=== PATIENT | male | born 1940 | race Caucasian/White ===

== ENCOUNTER 2023-06-01 07:33 | Inpatient (IN) ==
[2023-06-01] MEDS ORDERED: SODIUM CHLORIDE 0.9% 500 ML IV ONE (08:18)
[2023-06-01] MEDS ORDERED: fentaNYL citrate PF 100 MCG/2 ML VIAL IV STA ×2 (08:18→11:15)
[2023-06-01] MEDS ORDERED: ONDANSETRON INJ 2 MG/ML 2 ML VIAL IV STA ×2 (08:18→10:58)
--- NOTE | 2023-06-01 08:21 | Emergency Department Note ---
Impression & Plan Calculus of proximal right ureter, MANUEL (acute kidney injury), Renal mass, Hydronephrosis of right kidney ED Provider Note Name: CONG HURTADO Age: 83 Sex: Male Arrives Via: Ambulance Informant: Patient, family ED Provider: Viraj Agustin MD Chief Complaint: Right flank pain/abdominal pain Impression: As per impressions above Medical Decision Makin-year-old male with rapid onset of right lower quadrant abdominal pain similar to his flank over the last 24 hours. He is severely uncomfortable on arrival. He has significant tenderness palpation throughout the right abdomen. A CT of the and pelvis does reveal a large proximal right ureteral stone with moderate hydro-. There is no evidence of infection at this time. He does have some MANUEL of uncertain degree given do not know baseline labs. He was hydrated. He required multiple rounds of IV narcotics is quite uncomfortable. I did discuss with urology who agreed with approach for pain control fluids and hospitalist was consulted for further management. Triage/Nursing Notes reviewed by Me External Chart Review by me: No outside records available Differential:Renal colic, UTI, appendicitis, diverticulitis, mesenteric ischemia, aortic pathology, infections, inflammatory bowel disease, PUD, biliary pathology, as well as other pathologies. Vital Signs: reviewed and remarkable for hypertension Interventions: Fentanyl IV x2, Dilaudid IV x2, normal saline bolus IV Labs:ED labs Reviewed by me and remarkable for elevated creatinine Imaging:CT then pelvis with IV contrast reveals a proximal large right ureteral stone with moderate hydro no obstruction of bowel or free air appreciated. Cardiac/Tele Monitoring: Cardiac Monitoring: An Order was placed for continuous cardiac monitoring. The monitor shows a rate of 70 with a normal sinus rhythm. Consults:Dr Rodriguez [facility]rology. Dr Arehciga [place] Hospitalist Plan: Disposition:Hospitalization. Condition: Good History of Present Illness: 83-year-old male arrives for evaluation of abdominal pain. Patient notes 24 hours of rapidly worsening right lower quadrant abdominal pain. Radiates to his back somewhat. Associated with nausea. No falls, trauma, injuries. Patient states it hurts to take a deep breath or even move. Denies any previous pain like this. Has never had any surgeries on his abdomen. He takes Tums regularly for reflux.No medications taken this morning for pain. Brought in by family due to pain. Past Medical History:CAD with CABG Home Medications: Aspirin atorvastatin, baclofen, carvedilol, docusate, levothyroxine, Percocet, tamsulosin, Percocet Allergies:Denies drug allergies Vitals:Blood Pressure: 168/99, Pulse 70, RR 20, T 36.9C, O2 92% on RA Physical Exam: GENERAL: Patient is uncomfortable appearing and in moderate distress. RESPIRATORY: No dyspnea. Clear to auscultation and equal bilaterally. CARDIOVASCULAR: Regular rate and rhythm.Systolic murmur noted GASTROINTESTINAL: Abdomen soft, significant right lower quadrant tenderness palpation and some guarding. EXTREMITIES: Normal motion all extremities, no cyanosis, no edema. NEUROLOGIC: Alert and oriented. No focal neurologic deficits appreciated SKIN: No rash, no jaundice, no diaphoresis. PSYCH: Appropriate GCS: 15 ED Course: Times/Reassessments: Very difficult control of pain while here. Eventually improved somewhat and agreeable to hospitalization Viraj Agustin MD Past Med/Surg History Medical History History of diabetes mellitus History of prostate cancer s/p external radiation Hypothyroidism Coronary artery disease Surgical History History of arthroscopy of right shoulder History of coronary artery bypass graft x 3 Social History Smoking Status: Never smoker Tobacco Type: Cigarettes Hx Alcohol Use: No Hx Substance Use: No Preferred Language: Luxembourger Communication Ability: Effective Railroad Engineer Required: No Beliefs That Will Affect Care: None Current Living Situation: Family Feels Safe at Home: Yes Assistive Devices: Glasses Allergies Allergies Allergy/AdvReac Type Severity Reaction Status Date / Time No Known Allergies Allergy Unverified 06/01/23 10:34 Home Meds Home Medications Medication Instructions Recorded Confirmed aspirin 81 mg tablet,delayed 81 mg PO QAM 06/01/23 06/01/23 release atorvastatin 40 mg tablet 40 mg PO HS 06/01/23 06/01/23 baclofen 5 mg tablet 5 mg PO Q12H PRN muscle spasms 06/01/23 06/01/23 carvedilol 6.25 mg tablet 6.25 mg PO BID 06/01/23 06/01/23 docusate sodium 100 mg tablet 100 mg PO QAM 06/01/23 06/01/23 levothyroxine 25 mcg tablet 25 mcg PO QAM 06/01/23 06/01/23 oxycodone-acetaminophen 10 mg-325 1 tab PO .Q4-6H PRN Pain 06/01/23 06/01/23 mg tablet potassium chloride 10 mEq 10 meq PO QAM 06/01/23 06/01/23 tablet,extended release(part/cryst) tamsulosin 0.4 mg capsule 0.4 mg PO QAM 06/01/23 06/01/23 Results & Data (ED) Vital Signs Vital Signs - 24 hr 06/01/23 07:10 06/01/23 07:54 06/01/23 08:00 Temperature 36.9 C Temperature Source Oral Pulse Rate 64 60 Pulse Rate [Apical] 70 Pulse Rhythm Regular Pulse Rhythm [Apical] Regular Pulse Strength Normal Pulse Strength [Apical] Normal Respiratory Rate 20 20 Respiratory Effort / Characteristics Non-Labored Spontaneous Non-Labored Spontaneous Respiratory Depth Normal Normal Respiratory Pattern Regular Regular Blood Pressure 180/98 H Blood Pressure [Right Arm] 168/99 H Blood Pressure Mean 125 Blood Pressure Mean [Right Arm] 122 Blood Pressure Position Sitting Blood Pressure Position [Right Arm] Sitting Pulse Oximetry 86 L 92 Oxygen Delivery Method Room Air Room Air Sepsis Recent Fever Within 48 Hours No Sepsis New/Unexplained Change in Mental Status No Sepsis Action Taken by Nursing No Action Required Laboratory Data 06/02/23 07:15 06/02/23 07:15 Lab Results 06/01/23 06/01/23 Range/Units 07:52 10:29 WBC 7.75 (4.8-10.8) K/ul RBC 4.12 L (4.70-6.10) M/uL Hgb 12.6 L (14.0-18.0) g/dl Hct 38.0 L (42.0-52.0) % MCV 92.2 (80.0-100.0) fL MCH 30.6 (25.0-34.0) pg MCHC 33.2 (32.0-36.0) g/dL RDW Std Deviation 45.4 (36.4-46.3) fL RDW Coeff of Danielle 13.5 (11.5-14.5) % Plt Count 129 L (130-400) K/uL MPV 9.1 L (9.4-12.4) fL Immature Gran % (Auto) 0.4 % Neut % (Auto) 79.4 % Lymph % (Auto) 11.5 % [place] % (Auto) 7.4 % Eos % (Auto) 1.2 % Baso % (Auto) 0.1 % Neut # (Auto) 6.16 (1.40-6.50) K/uL Lymph # (Auto) 0.89 L (1.20-3.40) K/uL [place] # (Auto) 0.57 (0.11-0.59) K/uL Eos # (Auto) 0.09 (0.00-0.50) K/uL Baso # (Auto) 0.01 (0.00-0.20) K/uL Immature Gran # (Auto) 0.03 (0.01-0.20) K/uL Sodium 141 (136-145) mmol/L Potassium 3.9 (3.5-5.1) mmol/L Chloride 108 H (98-107) mmol/L Carbon Dioxide 24 (21-32) mmol/L Anion Gap 9 (3-11) BUN 27 H (6-23) mg/dl Creatinine 1.93 H (0.6-1.4) mg/dl Est Cr Clr Drug Dosing 28.1 ml/min Est GFR ( Amer) 36.8 ml/min Est GFR (Non-Af Amer) 31.7 ml/min BUN/Creatinine Ratio 14.0 (10-20) Glucose 138 H (70-99(Fasting)) mg/dl Calcium 9.4 (8.6-10.3) mg/dl Magnesium 1.8 (1.7-2.4) mg/dl Total Bilirubin 0.7 (0.2-1.0) mg/dl Direct Bilirubin 0.2 (0-0.2) mg/dl AST 20 (13-39) U/L ALT 21 (7-52) U/L Alkaline Phosphatase 36 (34-104) U/L Troponin I High Sens 14.2 (0-20) pg/ml Total Protein 6.9 (6.0-8.3) gm/dl Albumin 4.3 (3.4-5.0) gm/dl Lipase 20 (11-82) U/L Procalcitonin 0.05 (0-0.5) ng/ml Urine Color Yellow Urine Appearance Clear (Clear) Urine pH 5.0 (4.5-7.5) Ur Specific Alpha 1.021 (1.000-1.030) Urine Protein Negative (Negative) Urine Glucose (UA) Negative (Negative) Urine Ketones Negative (Negative) Urine Blood 1+ H (Negative) Urine Nitrite Negative (Negative) Urine Bilirubin Negative (Negative) Urine Urobilinogen Negative (Negative) Ur Leukocyte Esterase Negative (Negative) Urine WBC (Auto) 1-5 (0-5) /hpf Urine RBC (Auto) 10-30 H (0-4) /hpf U Hyaline Cast (Auto) 1-5 (0-5) /lpf U Epithel Cells (Auto) 0-5 (0-5) /lpf Urine Bacteria (Auto) Negative (Negative) Administered Medications Acetaminophen (Acetaminophen 500 Mg Tab) 1,000 mg PO TID [facility] Stop: 07/01/23 13:59 Last Admin: 06/02/23 15:19 Dose: 1,000 mg Documented By: Admin: 06/02/23 10:11 Dose: Not Given Documented By: Admin: 06/01/23 20:34 Dose: 1,000 mg Documented By: Admin: 06/01/23 13:28 Dose: 1,000 mg Documented By: AV Aspirin (Aspirin 81 Mg Ectab) [address] [facility] Stop: 07/01/23 12:54 Last Admin: 06/02/23 15:20 Dose: 81 mg Documented By: Admin: 06/01/23 13:28 Dose: 81 mg Documented By: KENAN Atorvastatin Calcium (Atorvastatin 40 Mg Tab) 40 mg PO HS ADILENE Stop: 07/01/23 20:59 Last Admin: 06/01/23 20:36 Dose: 40 mg Documented By: SG Carvedilol (Carvedilol 6.25 Mg Tab) 6.25 mg PO BID@1300,2100 [facility] Stop: 07/01/23 20:59 Last Admin: 06/02/23 15:20 Dose: 6.25 mg Documented By: Admin: 06/01/23 20:35 Dose: 6.25 mg Documented By: SG Docusate Sodium (Docusate Sodium 100 Mg Cap) [address] [facility] Stop: 07/02/23 08:59 Last Admin: 06/02/23 10:11 Dose: Not Given Documented By: KENAN Fentanyl Citrate (Fentanyl Citrate Pf 100 Mcg/2 Ml Vial) 25 mcg IV Q5M PRN PRN Reason: PACU Use Only-Pain Stop: 06/02/23 20:22 Last Admin: 06/02/23 14:20 Dose: 25 mcg Documented By: Admin: 06/02/23 14:15 Dose: 25 mcg Documented By: Admin: 06/02/23 14:10 Dose: 25 mcg Documented By: Admin: 06/02/23 14:04 Dose: 25 mcg Documented By: AD Heparin Sodium (Porcine) (Heparin Sod 5,000 Unit/0.5 Ml Vial) 5,000 units SQ Q12 [facility] Stop: 07/01/23 20:59 Last Admin: 06/02/23 10:12 Dose: Not Given Documented By: Admin: 06/01/23 20:36 Dose: 5,000 units Documented By: MISSAEL Hydromorphone HCl (Hydromorphone Inj 0.5 Mg/0.5 Ml Syr) 0.5 mg IV Q3H PRN PRN Reason: Pain (6,7,8,9,10) Stop: 06/15/23 13:36 Last Admin: 06/02/23 15:19 Dose: 0.5 mg Documented By: Admin: 06/02/23 07:30 Dose: 0.5 mg Documented By: Admin: 06/02/23 00:30 Dose: 0.5 mg Documented By: Admin: 06/01/23 16:12 Dose: 0.5 mg Documented By: KENAN Levothyroxine Sodium (Levothyroxine Sodium 25 Mcg Tablet) 25 mcg PO DAILYBB [facility] Stop: 07/02/23 06:29 Last Admin: 06/02/23 06:05 Dose: 25 mcg Documented By: MISSAEL Tamsulosin HCl (Tamsulosin Hcl 0.4 Mg Cap) 0.4 mg PO QAM [facility] Stop: 07/01/23 12:54 Last Admin: 06/02/23 15:20 Dose: 0.4 mg Documented By: Admin: 06/01/23 13:28 Dose: 0.4 mg Documented By: KENAN Discontinued Medications Carvedilol (Carvedilol 6.25 Mg Tab) 6.25 mg PO BIDM [facility] Stop: 07/01/23 12:54 Last Admin: 06/01/23 18:19 Dose: Not Given Documented By: Admin: 06/01/23 13:29 Dose: 6.25 mg Documented By: KENAN Ciprofloxacin (Ciprofloxacin 400mg / 200ml D5w) Confirm Administered Dose 400 mg IV .STK-MED ONE Stop: 06/02/23 13:25 Last Admin: 06/02/23 15:07 Dose: Not Given Documented By: KENAN Fentanyl Citrate (Fentanyl Citrate Pf 100 Mcg/2 Ml Vial) 50 mcg IV NOW STA Stop: 06/01/23 08:19 Last Admin: 06/01/23 08:39 Dose: 50 mcg Documented By: HARSHA Fentanyl Citrate (Fentanyl Citrate Pf 100 Mcg/2 Ml Vial) 100 mcg IV NOW STA Stop: 06/01/23 11:16 Last Admin: 06/01/23 11:23 Dose: 100 mcg Documented By: HARSHA Hydromorphone HCl (Hydromorphone Inj 0.5 Mg/0.5 Ml Syr) 0.5 mg IV NOW STA Stop: 06/01/23 09:57 Last Admin: 06/01/23 10:13 Dose: 0.5 mg Documented By: HARSHA Hydromorphone HCl (Hydromorphone Inj 1 Mg/Ml Syringe) 1 mg IV NOW STA Stop: 06/01/23 10:59 Last Admin: 06/01/23 11:04 Dose: 1 mg Documented By: HARSHA Sodium Chloride (Nss) 500 mls @ 999 mls/hr IV .Q31M ONE Stop: 06/01/23 08:48 Last Infusion: 06/01/23 09:19 Dose: Infused Documented By: Admin: 06/01/23 08:40 Dose: 999 mls/hr Documented By: HARSHA Sodium Chloride (Nss) 1,000 mls @ 999 mls/hr IV .Q1H1M ONE Stop: 06/01/23 10:57 Last Infusion: 06/01/23 13:01 Dose: Infused Documented By: Admin: 06/01/23 10:13 Dose: 999 mls/hr Documented By: HARSHA Parenteral Electrolytes (Plasma-Lyte A Ph 7.4) 1,000 mls @ 150 mls/hr IV .Q6H40M ADILENE Stop: 06/02/23 07:44 Last Infusion: 06/02/23 10:59 Dose: Infused Documented By: Admin: 06/02/23 03:40 Dose: 150 mls/hr Documented By: Infusion: 06/02/23 03:40 Dose: Infused Documented By: Admin: 06/01/23 21:06 Dose: 150 mls/hr Documented By: Infusion: 06/01/23 19:48 Dose: Infused Documented By: Admin: 06/01/23 13:07 Dose: 150 mls/hr Documented By: AV Morphine Sulfate (Morphine Sulfate 4 Mg/Ml 1 Ml Carp\Vial) 2 mg IV Q3H PRN PRN Reason: Pain (6,7,8,9,10) Stop: 06/15/23 12:54 Last Admin: 06/01/23 13:08 Dose: 2 mg Documented By: AV Ondansetron HCl (Ondansetron Inj 2 Mg/Ml 2 Ml Vial) 4 mg IV NOW STA Stop: 06/01/23 08:19 Last Admin: 06/01/23 08:39 Dose: 4 mg Documented By: HARSHA Ondansetron HCl (Ondansetron Inj 2 Mg/Ml 2 Ml Vial) 4 mg IV NOW STA Stop: 06/01/23 10:59 Last Admin: 06/01/23 11:04 Dose: 4 mg Documented By: HARSHA Imaging Data Radiologist's Impression: Chest X-Ray 06/01/23 08:18 SINGLE VIEW CHEST CLINICAL HISTORY: Hypoxia. FINDINGS: An AP, portable, upright chest radiograph is obtained. No prior studies are available for comparison at the time of dictation. The examination is degraded by portable technique and apical lordotic positioning. The patient is status post midline sternotomy. The heart is enlarged noting atherosclerotic calcification of the thoracic aorta. The pulmonary vasculature is congested. The lungs and pleural spaces are otherwise clear. No pneumothorax is seen. The skeletal structures are osteopenic. The bony thorax is grossly intact. Surgical anchors are noted in the right humeral head. IMPRESSION: Cardiomegaly with no active disease in the chest. ACT 112: Negative or not required by law. Electronically signed by: Maulik Garcia M.D. 06/01/2023 8:42 AM Discharge Plan Visit Data Chief Complaint: Abdominal Pain ED Provider: Viraj Agustin Discharge Problem: Calculus of proximal right ureter, MANUEL (acute kidney injury), Renal mass, Hydronephrosis of right kidney Patient Disposition: Admitted As Inpatient Discharge Instructions Interventions: ED Discharge Assessment Last Done: 06/01/23 12:36
[2023-06-01 08:34] LABS: Basophils # (auto) 0.01 K/uL (0.00-0.20); Basophils % (auto) 0.1 %; Eosinophils # (auto) 0.09 K/uL (0.00-0.50); Eosinophils % (auto) 1.2 %; Hemoglobin 12.6 g/dl (14.0-18.0); Immature Granulocytes # (auto) 0.03 K/uL (0.01-0.20); Immature Granulocytes % (auto) 0.4 %; Lymphocytes # (auto) 0.89 K/uL (1.20-3.40); Lymphocytes % (auto) 11.5 %; Mean Corpuscular Hemoglobin 30.6 pg (25.0-34.0); Mean Corpuscular Hgb Conc 33.2 g/dL (32.0-36.0); Mean Corpuscular Volume 92.2 fL (80.0-100.0); Mean Platelet Volume 9.1 fL (9.4-12.4); Monocytes # (auto) 0.57 K/uL (0.11-0.59); Monocytes % (auto) 7.4 %; Neutrophils # (auto) 6.16 K/uL (1.40-6.50); Neutrophils % (auto) 79.4 %; Platelet Count 129 K/uL (130-400); RDW Coefficient of Variation 13.5 % (11.5-14.5); RDW Standard Deviation 45.4 fL (36.4-46.3); Red Blood Count 4.12 M/uL (4.70-6.10); White Blood Count 7.75 K/ul (4.8-10.8)
--- NOTE | 2023-06-01 08:44 | XRay Report ---
SINGLE VIEW CHEST CLINICAL HISTORY: Hypoxia. FINDINGS: An AP, portable, upright chest radiograph is obtained. No prior studies are available for c omparison at the time of dictation. The examination is degraded by portable technique and apical lord otic positioning. The patient is status post midline sternotomy. The heart is enlarged noting atheros clerotic calcification of the thoracic aorta. The pulmonary vasculature is congested. The lungs and p leural spaces are otherwise clear. No pneumothorax is seen. The skeletal structures are osteopenic. T he bony thorax is grossly intact. Surgical anchors are noted in the right humeral head. IMPRESSION: Cardiomegaly with no active disease in the chest. ACT 112: Negative or not required by law. Electronically signed by: Maulik Garcia M.D. 06/01/2023 8:42 AM
[2023-06-01 09:02] LABS: Albumin Level 4.3 gm/dl (3.4-5.0); Bilirubin Direct 0.2 mg/dl (0-0.2); Bilirubin,Total 0.7 mg/dl (0.2-1.0); Calcium 9.4 mg/dl (8.6-10.3); Magnesium 1.8 mg/dl (1.7-2.4); Potassium 3.9 mmol/L (3.5-5.1)
[2023-06-01 09:08] LABS: Creatinine Clr Calc Pharmacy 28.1 ml/min; Est GFR (African American) 36.8 ml/min; Est GFR (Non-African American) 31.7 ml/min; Total Protein 6.9 gm/dl (6.0-8.3)
[2023-06-01 09:09] LABS: Troponin I High Sensitivity 14.2 pg/ml (0-20)
[2023-06-01] MEDS ORDERED: HYDROmorphone INJ 0.5 MG/0.5 ML SYR IV STA (09:56)
[2023-06-01] MEDS ORDERED: SODIUM CHLORIDE 0.9% 1,000 ML IV ONE (09:57)
--- NOTE | 2023-06-01 10:24 | CT Scan Report ---
CT SCAN OF THE ABDOMEN AND PELVIS WITHOUT IV CONTRAST CLINICAL HISTORY: Right lower quadrant abdominal pain. COMPARISON STUDY: No priors. TECHNIQUE: CT scan of the abdomen and pelvis is performed from the lung bases to the proximal femora. Images are reviewed in the axial, sagittal, and coronal planes. IV contrast was not administered for this examination. A dose lowering technique was utilized adhering to the principles of ALARA. CT DOSE: 1149.72 mGy.cm FINDINGS: Lung bases: The patient is status post midline sternotomy. The heart is mildly enlarged and without p ericardial effusion. There are coronary artery calcifications. The lung bases are clear. A small hiat al hernia is noted. Liver: The unenhanced liver is normal in size, contour, and attenuation. There is no intrahepatic daljit iary ductal dilatation. Gallbladder: Unremarkable. Spleen: Normal in size and attenuation. Pancreas: The unenhanced pancreas is grossly unremarkable. Adrenal glands: Unremarkable. Kidneys: The unenhanced kidneys demonstrate cortical atrophy. There is a 10 mm obstructing calculus i n the right proximal ureter at the level of L3 just below the ureteropelvic junction. This is best se en on image #140 and causes moderate right hydronephrosis. There is associated right-sided perinephri c inflammation and fluid. There are at least 8 additional tiny nonobstructing right renal calculi whi ch measure up to 3 mm. Additionally, there is a large complex lesion arising from the anterior interp olar right kidney seen on axial image #150. This measures 3.6 x 5.0 x 3.8 cm, and contains apparent c ystic foci, a rim of irregular hyperdense material, as well as scattered internal calcifications. A 2 .2 cm simple cyst arises from the right upper pole. Additional subcentimeter cortical hypodensities a re seen in both kidneys. There are at least 5 nonobstructing left renal calculi which measure up to 4 mm. There is no left ureteral stone or left-sided hydronephrosis. A retroverted left renal vein is i ncidentally noted. Abdominal vasculature: The abdominal aorta is normal in course and caliber noting moderate atheroscle rotic calcification. Bowel: There is mild colonic diverticulosis without CT evidence of acute diverticulitis. No bowel obs truction is seen. The appendix is well-visualized and normal. Peritoneum: There is trace perihepatic and perisplenic ascites. No intraperitoneal free air is identi fied. Lymphadenopathy: None. Pelvic viscera: The prostate gland is heterogeneous and contains metallic implants. The bladder is no rmal as visualized. There are bilateral fat-containing inguinal hernias.. Skeletal structures: The skeletal structures are osteopenic. Mild degenerative change is noted in the spine. A transitional left lumbosacral segment is incidentally noted. No lytic or blastic lesions ar e seen. IMPRESSION: 1. There is a 5.0 cm complex/heterogeneous lesion arising from the anterior interpolar right kidney a s detailed above. Although this could potentially represent a cyst with internal complexity/hemorrhag e, the appearance is much more suspicious for a renal neoplasm and a renal cell carcinoma is the diag nosis of exclusion. Follow-up with urology is recommended, as is a follow-up contrast-enhanced renal protocol CT or MRI in 2-3 weeks' time (following treatment of the obstructing right ureteral stone). 2. There is a 10 mm obstructing calculus in the right proximal ureter located just below the ureterop elvic junction. This causes moderate right hydronephrosis. 3. There is associated right-sided perinephric inflammation and fluid. 4. There are numerous additional small nonobstructing renal calculi seen bilaterally. 5. Trace upper abdominal ascites. 6. Additional findings as above. ACT 112: Positive. There are findings on this exam that require communication between the performing entity and the patient following Patient Test Result Information Act ([place] Act 112) guidelines. Electronically signed by: Maulik Garcia M.D. 06/01/2023 10:22 AM
[2023-06-01 10:44] LABS: Appearance Urine Clear (Clear); Bacteria Urine Automated Negative (Negative); Bilirubin Urine Negative (Negative); Blood Urine 1+ (Negative); Color Urine Yellow; Epithelial Cell Urine Auto 0-5 /lpf (0-5); Glucose Urine UA Negative (Negative); Ketones Urine Negative (Negative); Leukocyte Esterase Urine Negative (Negative); Nitrite Urine Negative (Negative); Protein Urine Negative (Negative); Specific Gravity Urine 1.021 (1.000-1.030); Urobilinogen Urine Negative (Negative)
[2023-06-01] MEDS ORDERED: HYDROmorphone INJ 1 MG/ML SYRINGE IV STA (10:58)
--- NOTE | 2023-06-01 11:45 | History & Physical Report ---
Date of Service June 01, 2023 Assessment & Plan (1) Ureterolithiasis: Plan: Obstructing causing suspected MANUEL (although no baseline available for comparison) Acetaminophen 1g TID Morphine 1-2mg IV q4h PRN Tamsulosin Plasma-Lyte @ 150ml/hr Consult urology (2) Renal mass: Plan: Consult urology (3) MANUEL (acute kidney injury): Plan: Obstructive from ureterolithiasis Unknown baseline but no known CKD per patient recollection Monitor for worsening with PM labs (4) Coronary artery disease: Plan: History of triple bypass in 2014 without [facility] per patient recollection ontinue ASA, carvedilol, atorvastatin (5) Systolic murmur: Plan: Throughout. Pt reports had it all his life. Denies any valvular pathology. (6) Hypothyroidism: Plan: TSH with AM labs Continue levothyroxine (7) Hypertensive urgency: Plan: Secondary to missing his carvedilol this morning and pain in the ER Improved to 157/84 at bedside after pain now controlled in the ER Plan VTE Prophyalxis - heparin 5000 units SQ BID Diet - heart healthy, NPO at midnight Disposition - admit to med/surg Admission and Anticipated Discharge Date Admission Date: June 01, 2023 History of Present Illness Chief Complaint: Right flank, right lower quadrant abdominal pain Primary Care Provider: ZAKI Orellana Gilberto Davis is an 83 year old male who presents to the ER with right lower abdominal and flank pain. He reports a longstanding history of back pain for the last 2 years getting progressively worse however never had a pain like this before which started last evening. He reports severity 10/10 pain started around 6pm last night. Constant but occasional sharp exacerbation. Better on moving around. Chills no fever. No urinary symptoms. No prior history of kidney stones. No prior heart attack or stroke. Triple coronary bypass 2014 - unknown what symptoms he was having at the time. Did not take his usual medications this morning. No vision changes or headache with his BP in the ER. Came in by EMS. Allergies Allergy/AdvReac Type Severity Reaction Status Date / Time No Known Allergies Allergy Unverified 06/01/23 10:34 Home Medications Medication Instructions Recorded Confirmed Type aspirin 81 mg tablet,delayed 81 mg PO QAM 06/01/23 06/01/23 History release atorvastatin 40 mg tablet 40 mg PO HS 06/01/23 06/01/23 History baclofen 5 mg tablet 5 mg PO Q12H PRN muscle spasms 06/01/23 06/01/23 History carvedilol 6.25 mg tablet 6.25 mg PO BID 06/01/23 06/01/23 History docusate sodium 100 mg tablet 100 mg PO QAM 06/01/23 06/01/23 History levothyroxine 25 mcg tablet 25 mcg PO QAM 06/01/23 06/01/23 History oxycodone-acetaminophen 10 mg-325 1 tab PO .Q4-6H PRN Pain 06/01/23 06/01/23 History mg tablet potassium chloride 10 mEq 10 meq PO QAM 06/01/23 06/01/23 History tablet,extended release(part/cryst) tamsulosin 0.4 mg capsule 0.4 mg PO QAM 06/01/23 06/01/23 History Past Med/Surg History Medical History (Updated 06/01/23 @ 12:32 by Ulysses Arechiga MD) History of diabetes mellitus History of prostate cancer s/p external radiation Hypothyroidism Coronary artery disease Surgical History (Updated 06/01/23 @ 11:46 by Ulysses Arechiga MD) History of arthroscopy of right shoulder History of coronary artery bypass graft x 3 Social History Smoking Status: Never smoker Tobacco Type: Cigarettes Hx Alcohol Use: No Hx Substance Use: No Preferred Language: Fijian Communication Ability: Effective [employer]els Sales Representative Required: No Beliefs That Will Affect Care: None Current Living Situation: Family Other Information That Helps Us Care for You: No Feels Safe at Home: Yes Safety Concerns: Feels Safe At This Time Assistive Devices: Glasses Review of Systems Review of Systems: All systems reviewed & are unremarkable except as noted in HPI & below Physical Exam Constitutional: WD/WN, vitals as above ENMT: Mouth: + dry oral mucous membranes Respiratory: normal respiratory effort, lungs clear to auscultation Cardiovascular: Rate/Rhythm: regular rate and regular rhythm Heart Sounds: + murmur (Systolic throughout) Extremities: normal capillary refill; no calf tenderness and no pedal edema Gastrointestinal (Abdomen): Inspection/Auscultation: abdomen normal to inspection; abdomen not distended Percussion/Palpation: + abdomen tender (RLQ), + guarding and abdomen soft; abdomen not rigid Musculoskeletal: no cyanosis or clubbing, extremities motor strength 5/5 Skin: no rashes, warm and dry Neurologic: moves all extremities and awake (drowsy); not confused Psychiatric: A+Ox3, euthymic affect Genitourinary: + CVA tenderness (right) Results & Data Results & Data Vital Signs (Past 12 Hours) Vital Signs Temp Pulse Pulse Resp BP BP Pulse Ox 06/01/23 11:30 83 21 06/01/23 11:16 62 22 94 06/01/23 11:16 245/108 H 06/01/23 11:09 75 21 94 06/01/23 11:09 260/114 H 06/01/23 11:00 65 20 94 06/01/23 11:00 227/118 H 06/01/23 10:45 229/113 H 06/01/23 10:45 67 15 96 06/01/23 10:30 70 22 94 06/01/23 10:01 64 22 95 06/01/23 10:01 204/141 H 06/01/23 10:00 69 22 92 06/01/23 10:00 74 20 204/141 H 92 06/01/23 09:45 65 19 97 06/01/23 09:45 229/112 H 06/01/23 09:30 65 15 96 06/01/23 09:30 183/84 H 06/01/23 09:17 188/85 H 06/01/23 09:17 61 17 96 06/01/23 09:06 61 16 97 06/01/23 09:01 81 24 94 06/01/23 09:01 220/127 H 06/01/23 09:00 65 19 92 06/01/23 09:00 72 20 188/85 H 92 06/01/23 08:45 66 13 92 06/01/23 08:45 188/115 H 06/01/23 08:34 66 19 95 06/01/23 08:34 198/97 H 06/01/23 08:30 62 18 95 06/01/23 08:30 200/111 H 06/01/23 08:16 68 19 97 06/01/23 08:16 194/113 H 06/01/23 08:00 64 13 95 06/01/23 08:00 168/99 H 06/01/23 08:00 70 20 168/99 H 92 06/01/23 07:54 60 11/18/23 07:48 68 20 97 06/01/23 07:10 36.9 C 64 20 180/98 H 86 L O2 Del Method 06/01/23 11:30 06/01/23 11:16 06/01/23 11:16 06/01/23 11:09 06/01/23 11:09 06/01/23 11:00 06/01/23 11:00 06/01/23 10:45 06/01/23 10:45 06/01/23 10:30 06/01/23 10:01 06/01/23 10:01 06/01/23 10:00 06/01/23 10:00 Room Air 06/01/23 09:45 06/01/23 09:45 06/01/23 09:30 06/01/23 09:30 06/01/23 09:17 06/01/23 09:17 06/01/23 09:06 06/01/23 09:01 06/01/23 09:01 06/01/23 09:00 06/01/23 09:00 Room Air 06/01/23 08:45 06/01/23 08:45 06/01/23 08:34 06/01/23 08:34 06/01/23 08:30 06/01/23 08:30 06/01/23 08:16 06/01/23 08:16 06/01/23 08:00 06/01/23 08:00 06/01/23 08:00 Room Air 06/01/23 07:54 06/01/23 07:48 06/01/23 07:10 Room Air Laboratory Results Abnormal lab results 06/01/23 06/01/23 Range/Units 07:52 10:29 RBC 4.12 L (4.70-6.10) M/uL Hgb 12.6 L (14.0-18.0) g/dl Hct 38.0 L (42.0-52.0) % Plt Count 129 L (130-400) K/uL MPV 9.1 L (9.4-12.4) fL Lymph # (Auto) 0.89 L (1.20-3.40) K/uL Chloride 108 H (98-107) mmol/L BUN 27 H (6-23) mg/dl Creatinine 1.93 H (0.6-1.4) mg/dl Glucose 138 H (70-99(Fasting)) mg/dl Urine Blood 1+ H (Negative) Urine RBC (Auto) 10-30 H (0-4) /hpf Diagnostic Findings SINGLE VIEW CHEST CLINICAL HISTORY: Hypoxia. FINDINGS: An AP, portable, upright chest radiograph is obtained. No prior studies are available for comparison at the time of dictation. The examination is degraded by portable technique and apical lordotic positioning. The patient is status post midline sternotomy. The heart is enlarged noting atherosclerotic calcification of the thoracic aorta. The pulmonary vasculature is congested. The lungs and pleural spaces are otherwise clear. No pneumothorax is seen. The skeletal structures are osteopenic. The bony thorax is grossly intact. Surgical anchors are noted in the right humeral head. IMPRESSION: Cardiomegaly with no active disease in the chest. CT SCAN OF THE ABDOMEN AND PELVIS WITHOUT IV CONTRAST CLINICAL HISTORY: Right lower quadrant abdominal pain. COMPARISON STUDY: No priors. TECHNIQUE: CT scan of the abdomen and pelvis is performed from the lung bases to the proximal femora. Images are reviewed in the axial, sagittal, and coronal planes. IV contrast was not administered for this examination. A dose lowering technique was utilized adhering to the principles of ALARA. CT DOSE: 1149.72 mGy.cm FINDINGS: Lung bases: The patient is status post midline sternotomy. The heart is mildly enlarged and without pericardial effusion. There are coronary artery calcifications. The lung bases are clear. A small hiatal hernia is noted. Liver: The unenhanced liver is normal in size, contour, and attenuation. There is no intrahepatic biliary ductal dilatation. Gallbladder: Unremarkable. Spleen: Normal in size and attenuation. Pancreas: The unenhanced pancreas is grossly unremarkable. Adrenal glands: Unremarkable. Kidneys: The unenhanced kidneys demonstrate cortical atrophy. There is a 10 mm obstructing calculus in the right proximal ureter at the level of L3 just below the ureteropelvic junction. This is best seen on image #140 and causes moderate right hydronephrosis. There is associated right-sided perinephric inflammation and fluid. There are at least 8 additional tiny nonobstructing right renal calculi which measure up to 3 mm. Additionally, there is a large complex lesion arising from the anterior interpolar right kidney seen on axial image #150. This measures 3.6 x 5.0 x 3.8 cm, and contains apparent cystic foci, a rim of irregular hyperdense material, as well as scattered internal calcifications. A 2.2 cm simple cyst arises from the right upper pole. Additional subcentimeter cortical hypodensities are seen in both kidneys. There are at least 5 nonobstructing left renal calculi which measure up to 4 mm. There is no left ureteral stone or left-sided hydronephrosis. A retroverted left renal vein is incidentally noted. Abdominal vasculature: The abdominal aorta is normal in course and caliber noting moderate atherosclerotic calcification. Bowel: There is mild colonic diverticulosis without CT evidence of acute diverticulitis. No bowel obstruction is seen. The appendix is well-visualized and normal. Peritoneum: There is trace perihepatic and perisplenic ascites. No intraperitoneal free air is identified. Lymphadenopathy: None. Pelvic viscera: The prostate gland is heterogeneous and contains metallic implants. The bladder is normal as visualized. There are bilateral fat- containing inguinal hernias.. Skeletal structures: The skeletal structures are osteopenic. Mild degenerative change is noted in the spine. A transitional left lumbosacral segment is incidentally noted. No lytic or blastic lesions are seen. IMPRESSION: 1. There is a 5.0 cm complex/heterogeneous lesion arising from the anterior interpolar right kidney as detailed above. Although this could potentially represent a cyst with internal complexity/hemorrhage, the appearance is much more suspicious for a renal neoplasm and a renal cell carcinoma is the diagnosis of exclusion. Follow-up with urology is recommended, as is a follow-up contrast- enhanced renal protocol CT or MRI in 2-3 weeks' time (following treatment of the obstructing right ureteral stone). 2. There is a 10 mm obstructing calculus in the right proximal ureter located just below the ureteropelvic junction. This causes moderate right hydronephrosis. 3. There is associated right-sided perinephric inflammation and fluid. 4. There are numerous additional small nonobstructing renal calculi seen bilaterally. 5. Trace upper abdominal ascites. 6. Additional findings as above. Medications Administered ER Medications Given: Fentanyl 50 mcg IV Ondansetron 4mg IV Normal saline 500ml bolus Dilaudid 0.5mg IV NSS 1L bolus Ondansetron 4mg IV Dilaudid 1mg IV Fentanyl 100 mcg IV Code Status & VTE Plan Code Status Full VTE Prophylaxis Plan VTE Prophylaxis will be ordered: Yes PG Care Time/CCT Total # of Minutes Spent Total Time Spent with Patient: Total time spent is greater than 50% in coordination of care (as documented) at patient's floor/unit and/or counseling patient: Coding Level of Care Code 30446 INT INP/OBS CARE 2/55MIN Diagnoses Ureterolithiasis N20.1 Renal mass N28.89 MANUEL (acute kidney injury) N17.9 Coronary artery disease I25.10 Systolic murmur R01.1 Hypothyroidism E03.9 Hypertensive urgency I16.0
[2023-06-01] MEDS ORDERED: MoRPHine SULFATE 4 MG/ML 1 ML CARP\\VIAL IV PRN (12:55)
[2023-06-01] MEDS ORDERED: MoRPHine SULFATE 2 MG/ML CARP IV PRN (12:55)
[2023-06-01] MEDS: PLASMA-LYTE A 1,000 ML IV SCH ×2 (13:07→21:06)
[2023-06-01] MEDS: ACETAMINOPHEN 500 MG TAB PO SCH ×2 (13:28→20:34)
[2023-06-01] MEDS: TAMSULOSIN HCL 0.4 MG CAP PO SCH (13:28)
[2023-06-01] MEDS: ASPIRIN 81 MG ECTAB PO SCH (13:28)
[2023-06-01] MEDS: carvediloL 6.25 MG TAB PO SCH ×3 (13:29→20:35)
[2023-06-01] MEDS ORDERED: HYDROmorphone INJ 0.5 MG/0.5 ML SYR IV PRN (13:37)
[2023-06-01] MEDS ORDERED: NALOXONE HCL 0.4 MG/1 ML VIAL/CARP IV PRN (13:37)
[2023-06-01] MEDS: HYDROmorphone INJ 0.5 MG/0.5 ML SYR IV PRN (16:12)
[2023-06-01] MEDS ORDERED: Nursing to Pharmacy Communication SCH (18:15)
[2023-06-01 18:59] LABS: BUN Creatinine Ratio 13.9 (10-20); Calcium 8.8 mg/dl (8.6-10.3); Creatinine Clr Calc Pharmacy 31.3 ml/min; Est GFR (Non-African American) 36.2 ml/min; Potassium 4.6 mmol/L (3.5-5.1)
[2023-06-01] MEDS: ATORVASTATIN 40 MG TAB PO SCH (20:36)
[2023-06-01] MEDS: HEPARIN SOD 5,000 UNIT/0.5 ML VIAL SQ SCH (20:36)
[2023-06-02] MEDS: HYDROmorphone INJ 0.5 MG/0.5 ML SYR IV PRN ×3 (00:30→15:19)
[2023-06-02] MEDS: PLASMA-LYTE A 1,000 ML IV SCH (03:40)
[2023-06-02] MEDS: LEVOTHYROXINE SODIUM 25 MCG TABLET PO SCH (06:05)
[2023-06-02 07:54] LABS: Basophils # (auto) 0.01 K/uL (0.00-0.20); Basophils % (auto) 0.1 %; Eosinophils # (auto) 0.04 K/uL (0.00-0.50); Eosinophils % (auto) 0.5 %; Hematocrit (blood only) 36.9 % (42.0-52.0); Hemoglobin 11.9 g/dl (14.0-18.0); Immature Granulocytes # (auto) 0.03 K/uL (0.01-0.20); Immature Granulocytes % (auto) 0.4 %; Mean Corpuscular Hemoglobin 29.8 pg (25.0-34.0); Mean Corpuscular Hgb Conc 32.2 g/dL (32.0-36.0); Mean Corpuscular Volume 92.5 fL (80.0-100.0); Monocytes # (auto) 0.66 K/uL (0.11-0.59); Monocytes % (auto) 8.1 %; Neutrophils # (auto) 6.54 K/uL (1.40-6.50); Neutrophils % (auto) 79.9 %; Platelet Count 110 K/uL (130-400); RDW Coefficient of Variation 13.9 % (11.5-14.5); RDW Standard Deviation 46.4 fL (36.4-46.3); Red Blood Count 3.99 M/uL (4.70-6.10); White Blood Count 8.18 K/ul (4.8-10.8)
[2023-06-02 08:15] LABS: BUN Creatinine Ratio 12.9 (10-20); Calcium 8.7 mg/dl (8.6-10.3); Creatinine Clr Calc Pharmacy 33.2 ml/min; Est GFR (African American) 45.1 ml/min; Est GFR (Non-African American) 38.9 ml/min; Potassium 4.4 mmol/L (3.5-5.1)
--- NOTE | 2023-06-02 09:47 | Urology Consultation ---
Date of Consultation June 02, 2023 Assessment & Plan (1) Renal mass: (2) Ureterolithiasis: Plan Obstructing right ureteral calculus Plan for cystoscopy right ureteral stent placement Think this should offer substantial relief of his discomfort I did discuss that he could increase his risk of hematuria or incontinence given his prior radiation therapy I did discuss that he will ultimately require a second procedure to definitively treat the stone, however if we can resolve his symptoms he should be able to be discharged today or tomorrow We discussed some of the risks because of his prior radiation therapy including increased risk of incontinence if I require dilation of any strictured areas I also discussed his cardiac historyprior CABG and WA He is very understanding and okay with moving forward with the procedure History of Present Illness Attending Physician: Sydni Mccall MD History of Present Illness 83-year-old gentleman with a history of prostate cancer status post radiation therapy in [place] and no prior history of kidney stones who presents after several days of right flank and lower back pain He does have some chronic back pain and was uncertain if this was just an exacerbation of his underlying symptoms or new problem Upon arrival he had a CT which demonstrates an obstructing right ureteral calculus He has a creatinine of 1.6 He also has a complex cystic mass of the right upper pole of the kidneythis is just over 3 cm and I discussed this with him and we will revisit it in the future He has known about a cystic lesion in this area for some time No prior interventions regarding the cystic lesion He is afebrile, his vital signs are stable He has a remote history of an WA but has not had recent cardiac events Allergies Allergy/AdvReac Type Severity Reaction Status Date / Time No Known Allergies Allergy Unverified 06/01/23 10:34 Home Medications Medication Instructions Recorded Confirmed Type aspirin 81 mg tablet,delayed 81 mg PO QAM 06/01/23 06/01/23 History release atorvastatin 40 mg tablet 40 mg PO HS 06/01/23 06/01/23 History baclofen 5 mg tablet 5 mg PO Q12H PRN muscle spasms 06/01/23 06/01/23 History carvedilol 6.25 mg tablet 6.25 mg PO BID 06/01/23 06/01/23 History docusate sodium 100 mg tablet 100 mg PO QAM 06/01/23 06/01/23 History levothyroxine 25 mcg tablet 25 mcg PO QAM 06/01/23 06/01/23 History oxycodone-acetaminophen 10 mg-325 1 tab PO .Q4-6H PRN Pain 06/01/23 06/01/23 History mg tablet potassium chloride 10 mEq 10 meq PO QAM 06/01/23 06/01/23 History tablet,extended release(part/cryst) tamsulosin 0.4 mg capsule 0.4 mg PO QAM 06/01/23 06/01/23 History Patient History Medical History History of diabetes mellitus History of prostate cancer s/p external radiation Hypothyroidism Coronary artery disease Surgical History History of arthroscopy of right shoulder History of coronary artery bypass graft x 3 Social History Smoking Status: Never smoker Tobacco Type: Cigarettes Hx Alcohol Use: No Hx Substance Use: No Preferred Language: Yakut Communication Ability: Effective Child Care Centre Director Required: No Beliefs That Will Affect Care: None Current Living Situation: Family Feels Safe at Home: Yes Assistive Devices: Glasses Physical Exam Constitutional: well developed and well nourished Neck: neck nontender Respiratory: normal respiratory effort; no respiratory distress and does not use accessory muscles Cardiovascular: Rate/Rhythm: regular rate Vessels: radial pulses present Extremities: no edema Gastrointestinal (Abdomen): Inspection/Auscultation: abdomen normal to inspection Percussion/Palpation: abdomen soft; abdomen nontender and no guarding Musculoskeletal: Head/Neck/Chest: normocephalic and head atraumatic Extremities: extremities normal to inspection Skin: no rashes and no lesions Trauma: no evidence of skin trauma Neurologic: awake; not obtunded Speech / Cognition: normal speech Motor/Sensory: no tremor Psychiatric: Orientation: alert and oriented x 3 Genitourinary: no CVA tenderness Lymphatic: no lymphadenopathy Results & Data Vital Signs (Past 12 Hours) Vital Signs Temp Pulse Resp BP Pulse Ox O2 Del Method O2 Flow Rate 06/02/23 07:25 36.5 C 64 14 135/68 94 Nasal Cannula 3 PG Care Time/CCT Total # of Minutes Spent Total Time Spent with Patient: Total time spent is greater than 50% in coordination of care (as documented) at patient's floor/unit and/or counseling patient: Coding Level of Care Code 93799 IN/OBS CONSULT LVL 4,60M Diagnoses Renal mass N28.89 Ureterolithiasis N20.1
[2023-06-02] MEDS: ACETAMINOPHEN 500 MG TAB PO SCH ×3 (10:11→19:23)
[2023-06-02] MEDS: DOCUSATE SODIUM 100 MG CAP PO SCH (10:11)
[2023-06-02] MEDS: HEPARIN SOD 5,000 UNIT/0.5 ML VIAL SQ SCH ×2 (10:12→19:24)
--- NOTE | 2023-06-02 12:16 | Anesthesiology Consultation ---
Date of Service June 02, 2023 Assessment & Plan Chart Review Chart Review: Acceptable Risk for Surgery Consults Requested none History Surgery Operation Date: 06/02/23 12:00 Proposed Procedures p Cystoscopy - Héctor Rodriguez MD Height/Weight Height: 5 ft 7 in Weight: 78.6 kg Allergies Allergy/AdvReac Type Severity Reaction Status Date / Time No Known Allergies Allergy Unverified 06/01/23 10:34 Medications Home Medications Medication Instructions Recorded Confirmed Last Taken aspirin 81 mg tablet,delayed 81 mg PO QAM 06/01/23 06/01/23 05/31/23 release atorvastatin 40 mg tablet 40 mg PO HS 06/01/23 06/01/23 05/31/23 baclofen 5 mg tablet 5 mg PO Q12H PRN muscle spasms 06/01/23 06/01/23 05/31/23 carvedilol 6.25 mg tablet 6.25 mg PO BID 06/01/23 06/01/23 05/31/23 docusate sodium 100 mg tablet 100 mg PO QAM 06/01/23 06/01/23 05/31/23 levothyroxine 25 mcg tablet 25 mcg PO QAM 06/01/23 06/01/23 05/31/23 oxycodone-acetaminophen 10 mg-325 1 tab PO .Q4-6H PRN Pain 06/01/23 06/01/23 05/31/23 mg tablet potassium chloride 10 mEq 10 meq PO QAM 06/01/23 06/01/23 05/31/23 tablet,extended release(part/cryst) tamsulosin 0.4 mg capsule 0.4 mg PO QAM 06/01/23 06/01/23 05/31/23 Active Medications Generic Name Dose Route Start Last Admin Trade Name Freq PRN Reason Stop Dose Admin Acetaminophen 1,000 mg 06/01/23 14:00 06/02/23 10:11 Acetaminophen 500 Mg Tab PO 07/01/23 13:59 Not Given TID ADILENE Aspirin 81 mg 06/01/23 12:55 06/01/23 13:28 Aspirin 81 Mg Ectab PO 07/01/23 12:54 81 mg QAM ADILENE Administration Atorvastatin Calcium 40 mg 06/01/23 21:00 06/01/23 20:36 Atorvastatin 40 Mg Tab PO 07/01/23 20:59 40 mg HS ADILENE Administration Carvedilol 6.25 mg 06/01/23 21:00 06/01/23 20:35 Carvedilol 6.25 Mg Tab PO 07/01/23 20:59 6.25 mg BID@1300,2100 ADILENE Administration Docusate Sodium 100 mg 06/02/23 09:00 06/02/23 10:11 Docusate Sodium 100 Mg Cap PO 07/02/23 08:59 Not Given QAM ADILENE Heparin Sodium (Porcine) 5,000 units 06/01/23 21:00 06/02/23 10:12 Heparin Sod 5,000 Unit/0.5 Ml Vial SQ 07/01/23 20:59 Not Given Q12 ADILENE Hydromorphone HCl 0.5 mg 06/01/23 13:37 06/02/23 07:30 Hydromorphone Inj 0.5 Mg/0.5 Ml Syr IV 06/15/23 13:36 0.5 mg Q3H PRN Administration Pain (6,7,8,9,10) Levothyroxine Sodium 25 mcg 06/02/23 06:30 06/02/23 06:05 Levothyroxine Sodium 25 Mcg Tablet PO 07/02/23 06:29 25 mcg DAILYBB ADILENE Administration Tamsulosin HCl 0.4 mg 06/01/23 12:55 06/01/23 13:28 Tamsulosin Hcl 0.4 Mg Cap PO 07/01/23 12:54 0.4 mg QAM ADILENE Administration NPO Date Last Intake of Fluids: 06/01/23 Time Last Intake of Fluids: 18:00 Date Last Intake of Solids: 06/01/23 Time Last Intake of Solids: 18:00 Past Medical History Medical History History of diabetes mellitus History of prostate cancer s/p external radiation Hypothyroidism Coronary artery disease Past Surgical History Surgical History History of arthroscopy of right shoulder History of coronary artery bypass graft x 3 Social History Smoking Status: Never smoker Hx Alcohol Use: No Hx Substance Use: No Physical Exam Vital Signs Last Vital Signs Temp 36.5 C 06/02/23 07:25 Pulse 64 06/02/23 07:25 Resp 14 06/02/23 07:25 BP 135/68 06/02/23 07:25 Pulse Ox 94 06/02/23 07:25 O2 Del Method Nasal Cannula 06/02/23 09:58 O2 Flow Rate 2 06/02/23 09:58 Constitutional WD/WN, vitals as above well developed and well nourished ENMT Mouth: + dry oral mucous membranes Neck neck nontender Respiratory normal respiratory effort, lungs clear to auscultation normal respiratory effort; no respiratory distress and does not use accessory muscles Cardiovascular Rate/Rhythm: regular rate and regular rhythm Heart Sounds: + murmur (Systolic throughout) Vessels: radial pulses present Extremities: normal capillary refill; no calf tenderness, no pedal edema and no edema Gastrointestinal (Abdomen) Inspection/Auscultation: abdomen normal to inspection; abdomen not distended Percussion/Palpation: abdomen soft; abdomen nontender, no guarding and abdomen not rigid Musculoskeletal no cyanosis or clubbing, extremities motor strength 5/5 Head/Neck/Chest: normocephalic and head atraumatic Extremities: extremities normal to inspection Skin no rashes, warm and dry no rashes and no lesions Trauma: no evidence of skin trauma Neurologic moves all extremities and awake; not confused and not obtunded Speech / Cognition: normal speech Motor/Sensory: no tremor Psychiatric A+Ox3, euthymic affect Orientation: alert and oriented x 3 Genitourinary no CVA tenderness Lymphatic no lymphadenopathy Testing Laboratory Results 06/02/23 07:15 06/02/23 07:15 Urine Color Yellow 06/01/23 10:29 Urine Appearance Clear (Clear) 06/01/23 10:29 Urine pH 5.0 (4.5-7.5) 06/01/23 10:29 Ur Specific [place] 1.021 (1.000-1.030) 06/01/23 10:29 Urine Protein Negative (Negative) 06/01/23 10:29 Urine Glucose (UA) Negative (Negative) 06/01/23 10:29 Urine Ketones Negative (Negative) 06/01/23 10:29 Urine Nitrite Negative (Negative) 06/01/23 10:29 Ur Leukocyte Esterase Negative (Negative) 06/01/23 10:29 Urine WBC (Auto) 1-5 /hpf (0-5) 06/01/23 10:29 Urine RBC (Auto) 10-30 /hpf (0-4) H 06/01/23 10:29 U Hyaline Cast (Auto) 1-5 /lpf (0-5) 06/01/23 10:29 U Epithel Cells (Auto) 0-5 /lpf (0-5) 06/01/23 10:29 Urine Bacteria (Auto) Negative (Negative) 06/01/23 10:29
[2023-06-02] MEDS ORDERED: ONDANSETRON INJ 2 MG/ML 2 ML VIAL IV PRN (12:22)
[2023-06-02] MEDS ORDERED: ATROPINE SULFATE 0.1 MG/ML 10ML SYR IV PRN (12:22)
[2023-06-02] MEDS ORDERED: ePHEDrine sulfate 50 MG/ML AMP IV PRN (12:22)
[2023-06-02] MEDS ORDERED: fentaNYL citrate PF 100 MCG/2 ML VIAL ONE (12:53)
[2023-06-02] MEDS ORDERED: LIDOCAINE 2% 2 ML VIAL/AMP(20MG/ML) INFIL ONE (12:54)
[2023-06-02] MEDS ORDERED: CIPROFLOXACIN 400MG / 200ML D5W IV ONE (13:24)
[2023-06-02] MEDS ORDERED: DEXAMETHASONE SOD INJ 4 MG/ML VIAL ONE (13:28)
[2023-06-02] MEDS ORDERED: PROPOFOL IV EMULSION 10 MG/ML 20 ML VIAL IV ONE (13:28)
[2023-06-02] MEDS ORDERED: ONDANSETRON INJ 2 MG/ML 2 ML VIAL ONE (13:28)
--- NOTE | 2023-06-02 13:36 | Operative Report ---
PG Post Operative Report Pre & Post Diagnosis Operation Date: 06/02/23 12:00 Pre: right ureteral calculus Post: Right ureteral calculus I identified the patient and participated in the time-out.: Yes Procedure Operation Date: 06/02/23 12:00 Procedure: cystoscopy, right ureteral stent placement Surgeon Héctor Rodriguez MD Computer Scientist none Estimated Blood Loss 0 Findings Consistent with Post-Op Diagnosis Specimens none Description of Procedure The patient was identified in the preoperative holding area, appropriate informed consents were reviewed and completed and the patient was transferred to the operative suite. Upon arrival, appropriate antibiotics and anesthesia were administered and the patient was placed in dorsal lithotomy position and prepped and draped in sterile fashion. Begin the case to pass a 21 Pashto cystoscope with 30 degree lens and visual aerial tram operator. Inspection revealed a healthy-appearing urethra, a small prostate which is notably status post radiation. He has a bladder which is relatively unremarkable without any significant radiation cystitis. The right ureteral orifice was identified in orthotopic position and was cannulated with a zip wire and a 5 Pashto open-ended catheter. The wire advanced the kidney without difficulty. I then placed a 6 Pashto by 26 cm double-J stent. There was good curl in the kidney as well as the bladder. There were no complications. I emptied the bladder and concluded the case I attest to the content of the Intraoperative Record and any orders documented therein. Any exceptions are noted below.
--- NOTE | 2023-06-02 13:42 | Fluoroscopy Report ---
FL retrograde includes kub CLINICAL HISTORY: RIGHT SIDE STENT COMPARISON STUDY: None. FLUOROSCOPY TIME: 5 seconds FLUOROSCOPY IMAGES: 1 Ka,r: 1.7 mGy FINDINGS: Single fluoroscopic spot image demonstrates placement of a right ureteral stent. Only the p roximal portion of the stent is identified and appears in good position. IMPRESSION: Fluoroscopic assistance as above. ACT 112: Negative or not required by law. Electronically signed by: Andriy Nieto M.D. 06/02/2023 1:40 PM
--- NOTE | 2023-06-02 13:52 | Anesthesiology Progress Note ---
Date of Service June 02, 2023 Anesthesia Post Procedure Vital Signs Vital Signs: Temp Pulse Resp BP Pulse Ox O2 Del Method O2 Flow Rate 06/02/23 09:58 Nasal Cannula 2 06/02/23 07:25 36.5 C 64 14 135/68 94 Nasal Cannula 3 06/01/23 21:15 Nasal Cannula 2 06/01/23 19:36 37.4 C 77 18 119/68 93 Nasal Cannula 2 06/01/23 14:38 36.6 C 77 16 138/73 97 Nasal Cannula 2 Pain Intensity Right Abdomen: Pain Intensity: 10 Transfer of Care Handoff Completed per policy Notes Mental Status: alert / awake / arousable Patient Amnestic to Procedure: Yes Nausea / Vomiting: adequately controlled Pain: adequately controlled Airway Patency, RR, SpO2: stable & adequate BP & HR: stable & adequate Hydration State: stable & adequate Anesthetic Complications: no major complications apparent and Pt Satisfied with anesthetic care
[2023-06-02] MEDS: fentaNYL citrate PF 100 MCG/2 ML VIAL IV PRN ×4 (14:04→14:20)
[2023-06-02] MEDS: TAMSULOSIN HCL 0.4 MG CAP PO SCH (15:20)
[2023-06-02] MEDS: carvediloL 6.25 MG TAB PO SCH ×2 (15:20→19:24)
[2023-06-02] MEDS: ASPIRIN 81 MG ECTAB PO SCH (15:20)
--- NOTE | 2023-06-02 18:19 | Hospitalist Progress Note ---
Date of Service June 02, 2023 Assessment & Plan (1) Ureterolithiasis: Plan: Obstructing stone causing suspected MANUEL (although no baseline available for comparison) Acetaminophen 1g TID was being treated with hydromorphone PRN, stepdown to his usual oxycodone 10 mg following the procedure. Takes this at home for back pain Tamsulosin Plasma-Lyte @ 150ml/hr urology consulted, performed cystoscopy and right ureteral stent placement successfully this afternoon did not have leukocytosis or fever, urinalysis was negative for WBC and leukocyte Estrace, not currently on antibiotics follow-up with urologist for definitive stone treatment and follow-up of renal cystic lesion Home in a.m. if clinically improving (2) Renal mass: Plan: Consulted urology - urologist notes indicate this will be followed up in the office once acute stone issues taking care of discussed with the patient and his family he is aware of this finding and the need for follow-up, and that it is hopefully hemorrhagic cyst but there is possibility of renal cell carcinoma (3) MANUEL (acute kidney injury): Plan: Obstructive from ureterolithiasis Unknown baseline but no known CKD per patient recollection creatinine progressively improved from 1.9 down to 1.63 today, repeat check in a.m. (4) Coronary artery disease: Plan: History of triple bypass in 2014 without MD per patient recollection ontinue ASA, carvedilol, atorvastatin (5) Systolic murmur: Plan: Throughout. Pt reports had it all his life. Denies any valvular pathology. (6) Hypothyroidism: Plan: Continue levothyroxine (7) Hypertensive urgency: Plan: Secondary to missing his carvedilol and pain in the ER blood pressure reviewed 06/02 and now well controlled continue carvedilol Plan VTE Prophyalxis - heparin 5000 units SQ BID Diet - heart healthy Disposition - home in a.m. Admission and Anticipated Discharge Date Admission Date: June 01, 2023 Subjective severe right abdominal pain that is colicky in nature, better after pain medications. no dyspnea or chest pain. does not know his baseline kidney function, not aware of problems. and daughter in room updated. seen prior to procedure Physical Exam 2 Physical Exam: PHYSICAL EXAMINATION Last 24h vital signs reviewed, see documentation in flowsheet General: comfortable appearing, no distress HEENT: Normocephalic, atraumatic, pupils round and equal, sclerae anicteric, no conjunctival injection, moist mucus membranes Lungs: Normal respiratory effort. Clear to auscultation bilaterally. No RRW Heart: Regular rate and rhythm, systolic murmur present. No JVD Abdomen: Soft, right abdomen/flank tender, nondistended. Bowel sounds present. Extremities: Warm, dry, well-perfused. No extremity edema. Neuro: Alert and oriented x 4, face symmetric, moves 4 extremities well Psych: Normal affect and behavior Results & Data Results & Data Vital Signs (Past 12 Hours) Vital Signs Temp Pulse Pulse Resp BP Pulse Ox O2 Del Method 06/02/23 17:45 36.8 C 71 14 108/53 L 91 Room Air 06/02/23 16:45 37.2 C 64 16 119/65 92 Room Air 06/02/23 15:45 36.4 C L 69 16 103/63 92 Room Air 06/02/23 15:15 36.5 C 66 14 163/78 H 94 Nasal Cannula 06/02/23 14:41 36.9 C 68 16 124/73 91 Room Air 06/02/23 14:10 71 20 141/75 H 93 Room Air 06/02/23 14:00 75 20 148/76 H 92 Room Air 06/02/23 13:50 78 20 159/82 H 100 Oxymask 06/02/23 13:40 36.3 C L 76 18 134/81 95 Oxymask 06/02/23 09:58 Nasal Cannula 06/02/23 07:25 36.5 C 64 14 135/68 94 Nasal Cannula O2 Flow Rate 06/02/23 17:45 06/02/23 16:45 06/02/23 15:45 06/02/23 15:15 3 06/02/23 14:41 06/02/23 14:10 06/02/23 14:00 06/02/23 13:50 5 06/02/23 13:40 5 06/02/23 09:58 2 06/02/23 07:25 3 Laboratory Results 06/02/23 07:15 06/02/23 07:15 Chest X-Ray 06/01/23 08:18 SINGLE VIEW CHEST CLINICAL HISTORY: Hypoxia. FINDINGS: An AP, portable, upright chest radiograph is obtained. No prior studies are available for comparison at the time of dictation. The examination is degraded by portable technique and apical lordotic positioning. The patient is status post midline sternotomy. The heart is enlarged noting atherosclerotic calcification of the thoracic aorta. The pulmonary vasculature is congested. The lungs and pleural spaces are otherwise clear. No pneumothorax is seen. The skeletal structures are osteopenic. The bony thorax is grossly intact. Surgical anchors are noted in the right humeral head. IMPRESSION: Cardiomegaly with no active disease in the chest. ACT 112: Negative or not required by law. Electronically signed by: Maulik Garcia M.D. 06/01/2023 8:42 AM Abdomen/Pelvis CT 06/01/23 09:29 CT SCAN OF THE ABDOMEN AND PELVIS WITHOUT IV CONTRAST CLINICAL HISTORY: Right lower quadrant abdominal pain. COMPARISON STUDY: No priors. TECHNIQUE: CT scan of the abdomen and pelvis is performed from the lung bases to the proximal femora. Images are reviewed in the axial, sagittal, and coronal planes. IV contrast was not administered for this examination. A dose lowering technique was utilized adhering to the principles of ALARA. CT DOSE: 1149.72 mGy.cm FINDINGS: Lung bases: The patient is status post midline sternotomy. The heart is mildly enlarged and without pericardial effusion. There are coronary artery calcifications. The lung bases are clear. A small hiatal hernia is noted. Liver: The unenhanced liver is normal in size, contour, and attenuation. There is no intrahepatic biliary ductal dilatation. Gallbladder: Unremarkable. Spleen: Normal in size and attenuation. Pancreas: The unenhanced pancreas is grossly unremarkable. Adrenal glands: Unremarkable. Kidneys: The unenhanced kidneys demonstrate cortical atrophy. There is a 10 mm obstructing calculus in the right proximal ureter at the level of L3 just below the ureteropelvic junction. This is best seen on image #140 and causes moderate right hydronephrosis. There is associated right-sided perinephric inflammation and fluid. There are at least 8 additional tiny nonobstructing right renal calculi which measure up to 3 mm. Additionally, there is a large complex lesion arising from the anterior interpolar right kidney seen on axial image #150. This measures 3.6 x 5.0 x 3.8 cm, and contains apparent cystic foci, a rim of irregular hyperdense material, as well as scattered internal calcifications. A 2.2 cm simple cyst arises from the right upper pole. Additional subcentimeter cortical hypodensities are seen in both kidneys. There are at least 5 nonobstructing left renal calculi which measure up to 4 mm. There is no left ureteral stone or left-sided hydronephrosis. A retroverted left renal vein is incidentally noted. Abdominal vasculature: The abdominal aorta is normal in course and caliber noting moderate atherosclerotic calcification. Bowel: There is mild colonic diverticulosis without CT evidence of acute diverticulitis. No bowel obstruction is seen. The appendix is well-visualized and normal. Peritoneum: There is trace perihepatic and perisplenic ascites. No intraperitoneal free air is identified. Lymphadenopathy: None. Pelvic viscera: The prostate gland is heterogeneous and contains metallic implants. The bladder is normal as visualized. There are bilateral fat- containing inguinal hernias.. Skeletal structures: The skeletal structures are osteopenic. Mild degenerative change is noted in the spine. A transitional left lumbosacral segment is incidentally noted. No lytic or blastic lesions are seen. IMPRESSION: 1. There is a 5.0 cm complex/heterogeneous lesion arising from the anterior interpolar right kidney as detailed above. Although this could potentially represent a cyst with internal complexity/hemorrhage, the appearance is much more suspicious for a renal neoplasm and a renal cell carcinoma is the diagnosis of exclusion. Follow-up with urology is recommended, as is a follow-up contrast- enhanced renal protocol CT or MRI in 2-3 weeks' time (following treatment of the obstructing right ureteral stone). 2. There is a 10 mm obstructing calculus in the right proximal ureter located just below the ureteropelvic junction. This causes moderate right hydronephrosis. 3. There is associated right-sided perinephric inflammation and fluid. 4. There are numerous additional small nonobstructing renal calculi seen bilaterally. 5. Trace upper abdominal ascites. 6. Additional findings as above. ACT 112: Positive. There are findings on this exam that require communication between the performing entity and the patient following Patient Test Result Information Act ([place] Act 112) guidelines. Electronically signed by: Maulik Garcia M.D. 06/01/2023 10:22 AM Retrograde Pyelogram 06/02/23 00:00 FL retrograde includes kub CLINICAL HISTORY: RIGHT SIDE STENT COMPARISON STUDY: None. FLUOROSCOPY TIME: 5 seconds FLUOROSCOPY IMAGES: 1 Ka,r: 1.7 mGy FINDINGS: Single fluoroscopic spot image demonstrates placement of a right ureteral stent. Only the proximal portion of the stent is identified and appears in good position. IMPRESSION: Fluoroscopic assistance as above. ACT 112: Negative or not required by law. Electronically signed by: Andriy Nieto M.D. 06/02/2023 1:40 PM PG Care Time/CCT Total # of Minutes Spent Total Time Spent with Patient: Total time spent is greater than 50% in coordination of care (as documented) at patient's floor/unit and/or counseling patient: Coding Level of Care Code 67728 SUB INP/OBS CARE 2/35MIN Diagnoses Ureterolithiasis N20.1 Renal mass N28.89 MANUEL (acute kidney injury) N17.9 Coronary artery disease I25.10 Systolic murmur R01.1 Hypothyroidism E03.9 Hypertensive urgency I16.0
[2023-06-02] MEDS: ATORVASTATIN 40 MG TAB PO SCH (19:23)
[2023-06-02] MEDS: oxyCODONE HCL IR 5 MG TAB (IMMEDIATE RELEASE) PO PRN (19:29)
[2023-06-03] MEDS: oxyCODONE HCL IR 5 MG TAB (IMMEDIATE RELEASE) PO PRN ×3 (03:14→12:37)
[2023-06-03] MEDS: LEVOTHYROXINE SODIUM 25 MCG TABLET PO SCH (05:31)
[2023-06-03 08:22] LABS: Potassium 4.3 mmol/L (3.5-5.1)
[2023-06-03 08:27] LABS: BUN Creatinine Ratio 13.8 (10-20); Creatinine Clr Calc Pharmacy 37.4 ml/min; Est GFR (Non-African American) 44.8 ml/min
[2023-06-03] MEDS: ACETAMINOPHEN 500 MG TAB PO SCH (08:31)
[2023-06-03] MEDS: HEPARIN SOD 5,000 UNIT/0.5 ML VIAL SQ SCH (08:31)
[2023-06-03] MEDS: ASPIRIN 81 MG ECTAB PO SCH (08:33)
[2023-06-03] MEDS: DOCUSATE SODIUM 100 MG CAP PO SCH (08:33)
[2023-06-03] MEDS: TAMSULOSIN HCL 0.4 MG CAP PO SCH (08:33)
--- NOTE | 2023-06-03 10:24 | Urology Progress Note ---
Date of Service June 03, 2023 Assessment & Plan (1) Hydronephrosis of right kidney: (2) Calculus of proximal right ureter: Plan: - Pt POD#1 s/p cystoscopy, retrograde pyelogram and right ureteral stent placement - Doing well, progressing as expected - Afebrile, lab work reviewed - creatinine 1.45, WBC 8.18 - Tolerating right ureteral stent with minimal bother - Okay to d/c from perspective when medically stable - Recommend d/c with Tamsulosin, prn Pyridium and prn oxybutynin for stent management - Expected clinical course reviewed, all questions answered - Will arrange outpatient follow-up with our service to discuss definitive stone management; complex renal lesion Admission and Anticipated Discharge Date Admission Date: June 01, 2023 Subjective Patient seen and examined at bedside this morning No acute issues overnight No flank discomfort Voiding spontaneously, notes hematuria post procedure Also reports urinary urgency and frequency Denies nausea, vomiting, fever or chills Review of Systems Constitutional: as per Subjective / HPI Gastrointestinal: as per Subjective / HPI Genitourinary: + as per Subjective / HPI Physical Exam Physical Exam: General: well-appearing, no acute distress HEENT: Normocephalic Pulmonary: Nonlabored respirations Abdomen: Nondistended Extremities: Moves all 4 spontaneously Neuro: No gross deficits Psych: alert and oriented, normal mood Skin: Warm, dry, no rashes noted Results & Data Vital Signs (Past 12 Hours) Vital Signs Temp Pulse Resp BP BP Pulse Ox O2 Del Method 06/03/23 07:39 36.4 C L 60 16 152/74 H 97 Room Air 06/03/23 03:15 36.4 C L 81 18 145/77 H 94 Room Air 06/02/23 22:52 36.6 C 61 18 115/68 93 Room Air PG Care Time/CCT Total # of Minutes Spent Total Time Spent with Patient: Total time spent is greater than 50% in coordination of care (as documented) at patient's floor/unit and/or counseling patient: Coding Level of Care Code 59786 SUB INP/OBS CARE 25MIN Diagnoses Hydronephrosis of right kidney N13.30 Calculus of proximal right ureter N20.1
[2023-06-03] MEDS: carvediloL 6.25 MG TAB PO SCH (12:37)
--- NOTE | 2023-06-03 17:37 | Discharge Summary ---
Date of Service June 03, 2023 Admission HPI Per Admitting Provider Gilberto Davis is an 83 year old male who presents to the ER with right lower abdominal and flank pain. He reports a longstanding history of back pain for the last 2 years getting progressively worse however never had a pain like this before which started last evening. He reports severity 10/10 pain started around 6pm last night. Constant but occasional sharp exacerbation. Better on moving around. Chills no fever. No urinary symptoms. No prior history of kidney stones. No prior heart attack or stroke. Triple coronary bypass 2014 - unknown what symptoms he was having at the time. Did not take his usual medications this morning. No vision changes or headache with his BP in the ER. Came in by EMS. Principal Diagnosis kidney stone obstructing right ureter, right kidney lesion on CT Discharge Exam PHYSICAL EXAMINATION Last 24h vital signs reviewed, see documentation in flowsheet General: comfortable appearing, no distress, sitting in chair HEENT: Normocephalic, atraumatic, pupils round and equal, sclerae anicteric, no conjunctival injection, moist mucus membranes Lungs: Normal respiratory effort. Clear to auscultation bilaterally. No RRW Heart: Regular rate and rhythm, systolic murmur present. No JVD Abdomen: Soft, right abdomen/flank no longer tender, nondistended. Bowel sounds present. Extremities: Warm, dry, well-perfused. No extremity edema. Neuro: Alert and oriented x 4, face symmetric, moves 4 extremities well Psych: Normal affect and behavior Discharge Data Allergies Allergy/AdvReac Type Severity Reaction Status Date / Time No Known Allergies Allergy Unverified 06/01/23 10:34 Consultations 06/01/23 11:04 Consult Urology Routine Consult Urology Routine ED Decision to Admit Stat Procedures Performed Operation Date: 06/02/23 12:00 Actual Procedures p Cystoscopy and Right Ureteral Stent(Right) - Héctor Rodriguez MD Ordered Studies 06/01/23 09:29 CT abd pelvis wo con Stat 06/02/23 FL retrograde includes kub Routine Chest X-Ray 06/01/23 08:18 SINGLE VIEW CHEST CLINICAL HISTORY: Hypoxia. FINDINGS: An AP, portable, upright chest radiograph is obtained. No prior studies are available for comparison at the time of dictation. The examination is degraded by portable technique and apical lordotic positioning. The patient is status post midline sternotomy. The heart is enlarged noting atherosclerotic calcification of the thoracic aorta. The pulmonary vasculature is congested. The lungs and pleural spaces are otherwise clear. No pneumothorax is seen. The skeletal structures are osteopenic. The bony thorax is grossly intact. Surgical anchors are noted in the right humeral head. IMPRESSION: Cardiomegaly with no active disease in the chest. ACT 112: Negative or not required by law. Electronically signed by: Maulik Garcia M.D. 06/01/2023 8:42 AM Abdomen/Pelvis CT 06/01/23 09:29 CT SCAN OF THE ABDOMEN AND PELVIS WITHOUT IV CONTRAST CLINICAL HISTORY: Right lower quadrant abdominal pain. COMPARISON STUDY: No priors. TECHNIQUE: CT scan of the abdomen and pelvis is performed from the lung bases to the proximal femora. Images are reviewed in the axial, sagittal, and coronal planes. IV contrast was not administered for this examination. A dose lowering technique was utilized adhering to the principles of ALARA. CT DOSE: 1149.72 mGy.cm FINDINGS: Lung bases: The patient is status post midline sternotomy. The heart is mildly enlarged and without pericardial effusion. There are coronary artery calcifications. The lung bases are clear. A small hiatal hernia is noted. Liver: The unenhanced liver is normal in size, contour, and attenuation. There is no intrahepatic biliary ductal dilatation. Gallbladder: Unremarkable. Spleen: Normal in size and attenuation. Pancreas: The unenhanced pancreas is grossly unremarkable. Adrenal glands: Unremarkable. Kidneys: The unenhanced kidneys demonstrate cortical atrophy. There is a 10 mm obstructing calculus in the right proximal ureter at the level of L3 just below the ureteropelvic junction. This is best seen on image #140 and causes moderate right hydronephrosis. There is associated right-sided perinephric inflammation and fluid. There are at least 8 additional tiny nonobstructing right renal calculi which measure up to 3 mm. Additionally, there is a large complex lesion arising from the anterior interpolar right kidney seen on axial image #150. This measures 3.6 x 5.0 x 3.8 cm, and contains apparent cystic foci, a rim of irregular hyperdense material, as well as scattered internal calcifications. A 2.2 cm simple cyst arises from the right upper pole. Additional subcentimeter cortical hypodensities are seen in both kidneys. There are at least 5 nonobstructing left renal calculi which measure up to 4 mm. There is no left ureteral stone or left-sided hydronephrosis. A retroverted left renal vein is incidentally noted. Abdominal vasculature: The abdominal aorta is normal in course and caliber noting moderate atherosclerotic calcification. Bowel: There is mild colonic diverticulosis without CT evidence of acute diverticulitis. No bowel obstruction is seen. The appendix is well-visualized and normal. Peritoneum: There is trace perihepatic and perisplenic ascites. No intraperitoneal free air is identified. Lymphadenopathy: None. Pelvic viscera: The prostate gland is heterogeneous and contains metallic implants. The bladder is normal as visualized. There are bilateral fat- containing inguinal hernias.. Skeletal structures: The skeletal structures are osteopenic. Mild degenerative change is noted in the spine. A transitional left lumbosacral segment is incidentally noted. No lytic or blastic lesions are seen. IMPRESSION: 1. There is a 5.0 cm complex/heterogeneous lesion arising from the anterior interpolar right kidney as detailed above. Although this could potentially represent a cyst with internal complexity/hemorrhage, the appearance is much more suspicious for a renal neoplasm and a renal cell carcinoma is the diagnosis of exclusion. Follow-up with urology is recommended, as is a follow-up contrast- enhanced renal protocol CT or MRI in 2-3 weeks' time (following treatment of the obstructing right ureteral stone). 2. There is a 10 mm obstructing calculus in the right proximal ureter located just below the ureteropelvic junction. This causes moderate right hydronephrosis. 3. There is associated right-sided perinephric inflammation and fluid. 4. There are numerous additional small nonobstructing renal calculi seen bilaterally. 5. Trace upper abdominal ascites. 6. Additional findings as above. ACT 112: Positive. There are findings on this exam that require communication between the performing entity and the patient following Patient Test Result Information Act ([place] Act 112) guidelines. Electronically signed by: Maulik Garcia M.D. 06/01/2023 10:22 AM Retrograde Pyelogram 06/02/23 00:00 FL retrograde includes kub CLINICAL HISTORY: RIGHT SIDE STENT COMPARISON STUDY: None. FLUOROSCOPY TIME: 5 seconds FLUOROSCOPY IMAGES: 1 Ka,r: 1.7 mGy FINDINGS: Single fluoroscopic spot image demonstrates placement of a right ureteral stent. Only the proximal portion of the stent is identified and appears in good position. IMPRESSION: Fluoroscopic assistance as above. ACT 112: Negative or not required by law. Electronically signed by: Andriy Nieto M.D. 06/02/2023 1:40 PM 06/02/23 07:15 06/03/23 05:59 Hospital Course (1) Ureterolithiasis: Obstructing stone causing suspected MANUEL (although no baseline available for comparison) Treated with analgesia, IV fluids, flomax urology consulted, performed cystoscopy and right ureteral stent placement successfully 06/02 did not have leukocytosis or fever, urinalysis was negative for WBC and leukocyte Estrace, not currently on antibiotics follow-up with urologist for definitive stone treatment and follow-up of renal cystic lesion pain substantially improved day of discharge - controlled on acetaminophen and his usual chronic opioids for back pain (2) Renal mass: Consulted urology - urologist notes indicate this will be followed up in the office once acute stone issues taking care of discussed with the patient and his family he is aware of this finding and the need for follow-up, and that it is hopefully hemorrhagic cyst but there is possibility of renal cell carcinoma (3) MANUEL (acute kidney injury): Obstructive from ureterolithiasis Unknown baseline but no known CKD per patient recollection creatinine progressively improved from 1.9 down to 1.45 today (4) Coronary artery disease: History of triple bypass in 2014 without PR per patient recollection continue ASA, carvedilol, atorvastatin remained stable (5) Systolic murmur: Throughout. Pt reports had it all his life. Denies any valvular pathology. -consider outpatient echo to evaluate for aortic valve disease (6) Hypothyroidism: Continue levothyroxine (7) Hypertensive urgency: Secondary to missing his carvedilol and pain in the ER blood pressure now well controlled continue carvedilol Total Time Total Time Spent Total Time Spent (In Minutes): 25 minutes Discharge Plan Discharge Items Patient Disposition: Home - Self-Care Reason For Visit: OBSTRUCTING URETEROLITHIASIS Discharge Diagnosis: right sided obstructing nephrolithiasis, probable MANUEL, right kidney lesion Activity: Resume your previous activity Non-emergency contact: Primary Care Provider and Urologist Call non-emergency contact if: you have any medication questions, your symptoms worsen and you have a fever Follow-up/Referrals: Héctor Rodriguez MD [Physician] - 06/11/23 9:30 am Jessi Beckman CRNP [Primary Care Provider] - 06/25/23 8:00 am Diet: Regular Addtl Attending Provider Instructions: Follow up with Dr. Rodriguez for definitive stone treatment and to follow up the lesion on your right kidney. Hopefully this lesions is a hemorrhagic cyst, but it is important that it is followed up because we cannot exclude the possibility of a renal cancer on the CT scan that you had. His office should be calling to schedule follow up, call them if you don't hear from the office by early next week. Your kidney function improved with IV fluids and stent placement. Follow up with your primary care doctor to recheck your kidney labs in a few weeks. Pending Studies at Discharge: No Stand-Alone Forms: [facility], Smoking Cessation Medications and DC Order Prescriptions: Continued atorvastatin 40 mg tablet 40 mg PO HS carvedilol 6.25 mg tablet 6.25 mg PO BID aspirin 81 mg tablet,delayed release (DR/EC) 81 mg PO QAM levothyroxine 25 mcg tablet 25 mcg PO QAM oxycodone-acetaminophen 10-325 mg tablet 1 tab PO .Q4-6H MDD Max 5 tablets per day PRN (Reason: Pain) tamsulosin 0.4 mg capsule 0.4 mg PO QAM docusate sodium 100 mg tablet 100 mg PO QAM potassium chloride 10 mEq tablet,ER particles/crystals 10 meq PO QAM baclofen 5 mg tablet 5 mg PO Q12H PRN (Reason: muscle spasms) Discharge Orders: Discharge Order (Routine); Ordered 06/03/23 Ordered By: Sydni Donald/Other Patient Handouts: Having a Ureteral Stent, Understanding Kidney Stones, Preventing Kidney Stones Admission Data Admit Date/Time: 06/01/23 11:07 Attending Provider: Sydni Mccall Admit Provider: Ulysses Arechiga Primary Care Provider: Jessi Beckman Other Providers: Héctor Rodriguez; Ulysses Arechiga Other Interventions: Discharge Summary Assessment (RN) Last Done: 06/03/23 10:24 Coding Level of Care Code 63125 IN/OBS DISCH 30 MIN/LESS Diagnoses Ureterolithiasis N20.1 Renal mass N28.89 MANUEL (acute kidney injury) N17.9 Coronary artery disease I25.10 Systolic murmur R01.1 Hypothyroidism E03.9 Hypertensive urgency I16.0
--- NOTE | 2023-06-03 19:23 | Electrocardiogram Report ---
Test Reason : Blood Pressure : / mmHG Vent. Rate : 060 BPM Atrial Rate : 060 BPM P-R Int : 188 ms QRS Dur : 134 ms QT Int : 432 ms P-R-T Axes : 034 -77 055 degrees QTc Int : 432 ms Normal sinus rhythm Right bundle branch block Left anterior fascicular block Bifascicular block Cannot rule out Inferior infarct (masked by fascicular block?) , age undetermined Anterolateral infarct , age undetermined Abnormal ECG No previous ECGs available Confirmed by Rick Kendrick ([id number]) on 06/03/2023 7:23:10 PM Referred By: REFERRED SELF Confirmed By:Rick Kendrick
== END 2023-06-03 13:35 | disposition home or self-care (01) | DRG 661 ==
LOC: ED 07:33 → 3E 11:07 → SUATTDRO 11:07 → 3E 12:36